=== PATIENT | female | born 1955 | race Caucasian/White ===

== ENCOUNTER → 2020-10-22 13:30 | Outpatient (CLI) | payer OTHER, BC, SELFPAY ==
--- NOTE | ~2020-10-22 | MM_ITS ---
EXAMINATION: MM screening anthony BI w steffany HISTORY: Screening mammogram, family history of breast cancer in her mother. TECHNIQUE: Craniocaudal and mediolateral oblique 3-D tomosynthesis images were obtained and synthetic 2-D images were generated. CAD analysis was submitted and interpreted. COMPARISON: 12/22/2018, 11/04/2016 BREAST PARENCHYMAL COMPOSITION: There are scattered areas of fibroglandular density. FINDINGS: There is no evidence of suspicious mass, calcification, or architectural distortion to sugg est malignancy in either breast. There has been no suspicious interval change. IMPRESSION: 1. No mammographic evidence of malignancy. 2. Recommend routine screening mammography in one year. BI-RADS Category 1: Negative Reviewed, dictated and finalized at location A.
== END ==
PROVIDERS: PCP Internal Medicine; Visit Provider Nurse Practitioner
DX: Z12.31 Encounter for screening mammogram for malignant neoplasm of breast (principal)
CPT/HCPCS: 77063; 77067

== ENCOUNTER → 2021-02-19 10:14 | Outpatient (CLI) | payer BC, SELFPAY ==
--- NOTE | ~2021-02-19 | US_ITS ---
EXAMINATION: US transvaginal DATE: 02/19/2021 10:51 INDICATION: Pelvic and perineal pain Comparison:No prior studies for comparison. TECHNIQUE: Multiple transabdominal and endovaginal sonographic images of the pelvis performed. FINDINGS: The uterus measures 4.9 x 2.6 x 3.7 cm. The endometrial complex measures 4 mm. The ovaries are not visualized, likely atrophic. No adnexal masses or fluid collections. There is no free fluid in the pelvis. There are no abnormal masses seen on either side. IMPRESSION: 1. Unremarkable pelvic ultrasound. Reviewed, dictated and finalized at location A. RITY SUPPORT ANALYST
--- NOTE | ~2021-02-19 | US_ITS ---
US pelvic limited 02/19/2021 10:51 Indication: Pelvic and perineal pain. Disorder of the bladder. Procedure: High-resolution ultrasound of the pelvis using transabdominal technique Comparison: No prior studies for comparison. Findings: Bladder wall is normal. Bladder contains 584 cc prevoid and 70 cc post void. No abnormal pe lvic masses identified. Impression: 1: Small-moderate post void residual measuring 70 cc. Reviewed, dictated and finalized at location A. [employer] Impression: 1: Small-moderate post void residual measuring 70 cc.
== END ==
PROVIDERS: PCP Internal Medicine; Visit Provider Nurse Practitioner Adult Health
DX: R10.2 Pelvic and perineal pain (principal); N32.89 Other specified disorders of bladder
CPT/HCPCS: 76830; 76857

== ENCOUNTER 2022-04-26 15:22 | Outpatient (CLI) | payer OTHER, SELFPAY ==
--- NOTE | ~2022-04-26 | MM_ITS ---
EXAMINATION: MM screening anthony BI w steffany HISTORY: Screening mammogram, family history of breast cancer in her mother. TECHNIQUE: Craniocaudal and mediolateral oblique 3-D tomosynthesis images were obtained and synthetic 2-D images were generated. CAD analysis was submitted and interpreted. COMPARISON: 10/22/2020, 12/22/2018, 11/04/2016 BREAST PARENCHYMAL COMPOSITION: There are scattered areas of fibroglandular density. FINDINGS: No suspicious mass, calcification, or architectural distortion are identified in either rosa ast to suggest malignancy. There has been no suspicious interval change. IMPRESSION: 1. No mammographic evidence of malignancy. 2. Recommend routine screening mammography in one year. BI-RADS Category 1: Negative Reviewed, dictated and finalized at location A. COORDINATOR
== END 2022-04-26 15:23 | disposition home or self-care (01) ==
LOC: ANHIMG 15:26
PROVIDERS: PCP Internal Medicine; Visit Provider Nurse Practitioner
DX: Z12.31 Encounter for screening mammogram for malignant neoplasm of breast (principal)
CPT/HCPCS: 77063; 77067

== ENCOUNTER 2023-03-22 07:39 | Outpatient (CLI) | payer MEDICARE, SELFPAY ==
--- NOTE | ~2023-03-22 | MMUS_ITS ---
EXAMINATION: MM diagnostic anthony LT w steffany, US breast LT complete HISTORY: Left breast pain TECHNIQUE: Additional 3-D tomosynthesis images of the left breast were performed and synthetic 2-D im ages were generated. CAD analysis was submitted and interpreted. High resolution complete left breast ultrasound was performed. COMPARISON: Comparison to multiple prior studies sequentially, with oldest reviewed study dated 08/2015. BREAST PARENCHYMAL COMPOSITION: Breast composed of scattered areas of fibroglandular density FINDINGS: MAMMOGRAPHIC FINDINGS: There are no suspicious masses, calcifications or architectural distortion in the left breast to sugg est malignancy. ULTRASOUND: Complete US of all 4 quadrants of the left breast and retroareolar region was reviewed. Normal hetero geneous echotexture without focal solid or cystic mass. IMPRESSION: 1. No evidence for malignancy in the left breast. 2. Routine yearly screening mammogram and regular clinical breast examination are recommended. BI-RADS Category 1: Negative Reviewed, dictated and finalized at location A. A SERVICES SPECIALIST IMPRESSION: 1. No evidence for malignancy in the left breast. 2. Routine yearly screening mammogram and regular clinical breast examination a re recommended. BI-RADS Category 1: Negative
== END 2023-03-22 07:40 ==
PROVIDERS: PCP Nurse Practitioner; Visit Provider Nurse Practitioner
DX: N64.4 Mastodynia (principal)
CPT/HCPCS: 76641; 77061; 77065; G0279

== ENCOUNTER → 2023-05-09 10:58 | Outpatient (CLI) | payer MEDICARE, SELFPAY ==
--- NOTE | ~2023-05-09 | DEXA_ITS ---
Bone Density Report Name: IMELDA ROBERTS Age: 67 Sex: Female Ethnicity: White Date of : 1955 Indication: osteopenia; postmenopausal Referring Provider: FRANCOISGINNY Study: Bone densitometry was performed. Exam Date: May 09, 2023 Accession number: [id number] Bone Density: Region BMD T-score Z-score Classification AP Spine (L1, L2) 1.136 1.4 3.1 Normal Femoral Neck (Left) 0.660 -1.7 -0.2 Osteopenia Total Hip (Left) 0.810 -1.1 0.2 Osteopenia Femoral Neck (Right) 0.623 -2.0 -0.5 Osteopenia Total Hip (Right) 0.761 -1.5 -0.2 Osteopenia Total Hip Mean 0.786 -1.3 0.0 Osteopenia World Health Organization criteria for BMD impression classify patients as: Normal (T-score at or above -1.0), Osteopenia (T-score between -1.0 and -2.5), or Osteoporosis (T-score at or below -2.5). 10-year Fracture Risk(1): Major Osteoporotic Fracture 11% Hip Fracture 1.8% Reported Risk Factors: [place] (), Neck BMD=0.623, BMI=24.6 (1) FRAX(R) Version 3.08. Fracture probability calculated for an untreated patient. Fracture probability may be lower if the patient has received treatment. Previous Exams: Region Exam Age BMD T-score BMD Change BMD Change Date g/cm2 vs Baseline vs Previous AP Spine(L1, L2) 05/09/2023 67 1.136 1.4 0.032* 0.032* 05/16/2015 59 1.104 1.1 Total Hip(Left) 05/09/2023 67 0.810 -1.1 -0.058* -0.058* 05/16/2015 59 0.868 -0.6 Total Hip(Right) 05/09/2023 67 0.761 -1.5 -0.041* -0.041* 05/16/2015 59 0.802 -1.1 *Denotes significance at 95% confidence level, LSC for AP Spine = 0.022 g/cm2, LSC for Total Hip = 0.027 g/cm2 Clinical Information Provided by Patient: Has used the following medications: Vitamin D, mtv Patient maximum height was 64 Menopause Age: 49 Does not regularly consume dairy products Onset of menses at age 14 Number of children 3 Impression: The patient has low bone mass, based on the Right Femoral Neck T-score. The patient has an estimated ten-year risk of hip fracture of 1.8% and an estimated ten-year risk of major fracture of 11%, based on the WHO FRAX algorithm. The BMD for the Total Hip(Left) decreased, changing by -0.058 since the last DXA exam. The BMD for the Total Hip(Right) decreased, changing by -0.041 since the last DXA exam. Discussion: BONE DENSITY IS LOW AT ONE OR MORE SKELETAL SITES. This patient's lowest T-score is lo
== END ==
PROVIDERS: PCP Internal Medicine; Visit Provider Internal Medicine
DX: Z78.0 Asymptomatic menopausal state (principal); M85.852 Other specified disorders of bone density and structure, left thigh; M85.851 Other specified disorders of bone density and structure, right thigh
CPT/HCPCS: 77080

== ENCOUNTER 2023-06-21 07:13 | Outpatient (CLI) | payer MEDICARE, SELFPAY ==
--- NOTE | ~2023-06-21 | MM_ITS ---
EXAMINATION: MM screening anthony BI w steffany HISTORY: Screening mammogram TECHNIQUE: Craniocaudal and mediolateral oblique 3-D tomosynthesis images were obtained and synthetic 2-D images were generated. CAD analysis was submitted and interpreted. COMPARISON: 03/22/2023 diagnostic left mammogram and complete left breast ultrasound 04/26/2022, 10/22/2020 bilateral screening mammogram examinations BREAST PARENCHYMAL COMPOSITION: There are scattered areas of fibroglandular density. FINDINGS: There is no evidence of suspicious mass, calcification, or architectural distortion to sugg est malignancy in either breast. There has been no suspicious interval change. IMPRESSION: 1. No mammographic evidence of malignancy. 2. Recommend routine screening mammography in one year. BI-RADS Category 1: Negative Reviewed, dictated and finalized at location A.
== END 2023-06-21 07:14 ==
PROVIDERS: PCP Nurse Practitioner; Visit Provider Nurse Practitioner
DX: Z12.31 Encounter for screening mammogram for malignant neoplasm of breast (principal)
CPT/HCPCS: 77063; 77067

== ENCOUNTER 2024-08-08 10:59 | Outpatient (CLI) | payer MEDICARE, SELFPAY ==
--- NOTE | ~2024-08-08 | MM_ITS ---
EXAMINATION: MM screening anthony BI w steffany HISTORY: Screening TECHNIQUE: Craniocaudal and mediolateral oblique 3-D tomosynthesis images were obtained and synthetic 2-D images were generated. CAD analysis was submitted and interpreted. COMPARISON: Comparison to multiple prior studies sequentially, with oldest reviewed study dated 11/04. BREAST PARENCHYMAL COMPOSITION: Not dense: There are scattered areas of fibroglandular density. FINDINGS: There is no evidence of suspicious mass, calcification, or architectural distortion to sugg est malignancy in either breast. There has been no suspicious interval change. IMPRESSION: 1. No mammographic evidence of malignancy. 2. Recommend routine screening mammography in one year. BI-RADS Category 1: Negative Reviewed, dictated and finalized at location A.
== END 2024-08-08 11:00 | disposition home or self-care (01) ==
LOC: MICIMG 11:00
PROVIDERS: PCP Internal Medicine; Visit Provider Nurse Practitioner
DX: Z12.31 Encounter for screening mammogram for malignant neoplasm of breast (principal)
CPT/HCPCS: 77063; 77067

== ENCOUNTER 2024-08-14 09:52 | Outpatient (CLI) | payer MEDICARE, SELFPAY ==
--- NOTE | ~2024-08-14 | US_ITS ---
Pelvic ultrasound. Clinical History: Pelvic pain Technique: Realtime transabdominal and transvaginal scanning of the pelvis was performed. Color flow Doppler and Doppler spectral analysis were performed. Findings: The uterus is anteverted. The endometrial stripe has a thickness of 6 mm. No focal mass is identified. The right ovary is not visualized. No significant right ovarian or adnexal mass is seen. The left ovary measures 1.3 x 1.5 x 1.3 cm. No significant left ovarian or adnexal mass is seen. There is no evidence of free fluid in the cul de sac. Impression: No significant abnormality seen. Right ovary not visualized. Reviewed, dictated and finalized at location . Impression: No significant abnormality seen. Right ovary not visualized.
== END 2024-08-14 09:53 | disposition home or self-care (01) ==
LOC: GOSHIMG 09:53
PROVIDERS: PCP Internal Medicine; Visit Provider Internal Medicine
DX: R10.2 Pelvic and perineal pain (principal)
CPT/HCPCS: 76856

== ENCOUNTER 2025-03-25 05:57 | Day surgery (SDC) | payer MEDICARE, SELFPAY ==
[2025-03-15 10:12] VITALS: BMI 22.3
[2025-03-25 06:10] VITALS: BP 117/69; PULSE 75; RESP 18; TEMP 37.2; O2SAT 100
[2025-03-25] MEDS: LACTATED RINGERS 1,000 ML 150 ML IV CONT (06:25)
--- NOTE | 2025-03-25 07:19 | P.PNAN_ITS ---
Anes - Initial Pre Proc Eval Procedure: Operation Date: 03/25/25 07:30 Proposed Procedures p Screening Colonoscopy - Brice Cornell MD Date/Time: 03/25/25 07:19 Surgeon: Brice Cornell MD Pre Op Diagnosis: Neoplasm Screening Patient Data Age: 69 Gender: F Height: 1.63 m Weight: 58.75 kg Last Vital Signs Temp 99.0 F 03/25/25 06:10 Pulse 75 03/25/25 06:10 Resp 18 03/25/25 06:10 BP 117/69 03/25/25 06:10 Pulse Ox 100 03/25/25 06:10 O2 Del Method Room Air 03/25/25 06:10 Allergies Allergy/AdvReac Type Severity Reaction Status Date / Time ciprofloxacin Allergy Intermediate Dizziness Verified 03/25/25 06:41 erythromycin base Allergy Intermediate Palpitation Verified 03/25/25 06:41 s metronidazole Allergy Intermediate Dizziness Verified 03/25/25 06:41 Penicillins Allergy Intermediate Palpitation Verified 03/25/25 06:41 s Home Medications ?Medication ?Instructions ?Recorded ?Confirmed ?Type Vitamin D3-K2 1 cap PO DAILY 12/06/2403/11 History multivitamin 1 tablet PO DAILY 12/06/24 1 05/26/24 History omega 3 1 cap PO DAILY 12/06/2403/11 History vitamin E 670 mg (1,000 unit) 670 mg PO DAILY 12/06/24 03/25/25 History capsule Patient hx anesthesia problems: none Family hx anesthesia problems: none Results Review: All pre-operative results and documents have been reviewed as part of the pre- operative evaluation. [facility] Past Medical History Medical History (Updated 12/06/24 @ 09:28 by Mickie Acosta DO) Hyperlipidemia Pulmonary nodule Type 2 diabetes mellitus without complications Surgical History Surgical History (Updated 12/06/24 @ 08:49 by Chica Shields CMA) History of lumbar laminectomy Family History Family History (Updated 06/01/16 @ 13:18 by DOCTOR UNKNOWN) Mother Family history of diabetes mellitus in first degree relative Family history of malignant neoplasm of breast in first degree relative Father Family history of lung cancer Family history of primary malignant neoplasm of liver Social History Social History Smoking status: Never smoker Alcohol intake: current Substance use type: does not use Living arrangements: with family Spiritual care concerns: No Anes - Eval Final PreProcedure Day of Procedure 03/25/25 07:19 Heart: regular rate and rhythm Lungs: clear to auscultation Airway: Mallampati scale class 1 Neurological: alert and oriented Last oral intake: >/= 8 hours ASA classification: II Anesthetic plan: proceed Anesthesia type and monitoring: general Results Review: All pre-operative results and documents have been reviewed as part of the pre- operative evaluation. Informed Consent: The patient's anesthetic plan and its attendant risks and benefits were discussed with the patient/family/POA. Questions were solicited and answers provided to the satisfaction of the patient/family/POA.
--- NOTE | 2025-03-25 07:39 | PM.IMHP2 ---
H&P: HPI History of Present Illness Date/Time: 03/25/25 07:39 Chief Complaint: Screening colonoscopy Narrative: This is the patient's 2nd screening colonoscopy. There are no GI symptoms and there is no family history of colorectal cancer. Review of Systems Review of Systems: All systems reviewed & are unremarkable except as noted in HPI and below PMFSH Past Medical History Medical History (Updated 03/25/25 @ 07:40 by Brice Cornell MD) Hyperlipidemia Pulmonary nodule Type 2 diabetes mellitus without complications Surgical History Surgical History (Updated 12/06/24 @ 08:49 by Chica Shields CMA) History of lumbar laminectomy Family History Family History (Updated 06/01/16 @ 13:18 by DOCTOR UNKNOWN) Mother Family history of diabetes mellitus in first degree relative Family history of malignant neoplasm of breast in first degree relative Father Family history of lung cancer Family history of primary malignant neoplasm of liver Social History Social History Smoking status: Never smoker Alcohol intake: current Substance use type: does not use Living arrangements: with family Spiritual care concerns: No Meds Home Medications and Allergies Home Medications ?Medication ?Instructions ?Recorded ?Confirmed ?Type Vitamin D3-K2 1 cap PO DAILY 12/06/24 03/25/25 History multivitamin 1 tablet PO DAILY 12/06/24 03/25/25 History omega 3 1 cap PO DAILY 12/06/24 03/25/25 History vitamin E 670 mg (1,000 unit) 670 mg PO DAILY 12/06/24 03/25/25 History capsule Allergies Allergy/AdvReac Type Severity Reaction Status Date / Time ciprofloxacin Allergy Intermediate Dizziness Verified 03/25/25 06:41 erythromycin base Allergy Intermediate Palpitation Verified 03/25/25 06:41 s metronidazole Allergy Intermediate Dizziness Verified 03/25/25 06:41 Penicillins Allergy Intermediate Palpitation Verified 03/25/25 06:41 s Vital Signs Vital Signs - 24 hr 03/25/25 06:10 Temperature 99.0 F Pulse Rate 75 Respiratory Rate 18 Blood Pressure 117/69 Pulse Oximetry 100 Oxygen Delivery Room Air Exam Const: General: cooperative and healthy appearing Resp: Effort & Inspection: normal respiratory effort and able to speak in complete sentences Auscultation: clear to auscultation bilaterally Cardio: Rate: regular rate Rhythm: regular rhythm GI: Inspection: normal to inspection GI Palp: No No hepatosplenomegaly present Auscultation: normal bowel sounds Rectal Exam: deferred Skin: General skin exam: normal color Psych: Appearance: grossly normal Mental Status: mental status grossly normal Assessment and Plan Assessment and plan (1) Encounter for screening colonoscopy: Code(s): Z12.11 - Encounter for screening for malignant neoplasm of colon Status: Acute Assessment and Plan: The patient is deemed a good candidate for the procedure. Consent signed. Will proceed. had
--- NOTE | 2025-03-25 07:57 | WPDANESEPPF ---
Anes - Initial Pre Proc Eval Procedure: Operation Date: 03/25/25 07:30 Proposed Procedures p Screening Colonoscopy - Brice Cornell MD Date/Time: 03/25/25 07:57 Surgeon: Brice Cornell MD Pre Op Diagnosis: Neoplasm Screening Patient Data Age: 69 Gender: F Height: 1.63 m Weight: 58.75 kg Last Vital Signs Temp 99.0 F 03/25/25 06:10 Pulse 75 03/25/25 06:10 Resp 18 03/25/25 06:10 BP 117/69 03/25/25 06:10 Pulse Ox 100 03/25/25 06:10 O2 Del Method Room Air 03/25/25 06:10 Allergies Allergy/AdvReac Type Severity Reaction Status Date / Time ciprofloxacin Allergy Intermediate Dizziness Verified 03/25/25 06:41 erythromycin base Allergy Intermediate Palpitation Verified 03/25/25 06:41 s metronidazole Allergy Intermediate Dizziness Verified 03/25/25 06:41 Penicillins Allergy Intermediate Palpitation Verified 03/25/25 06:41 s Home Medications ?Medication ?Instructions ?Recorded ?Confirmed ?Type Vitamin D3-K2 1 cap PO DAILY 12/06/24 03/25/25 History multivitamin 1 tablet PO DAILY 12/06/24 03/25/25 History omega 3 1 cap PO DAILY 12/06/24 03/25/25 History vitamin E 670 mg (1,000 unit) 670 mg PO DAILY 12/06/24 03/25/25 History capsule Patient hx anesthesia problems: none Family hx anesthesia problems: none Results Review: All pre-operative results and documents have been reviewed as part of the pre-operative evaluation. [facility] Past Medical History Medical History (Updated 03/25/25 @ 07:40 by Brice Cornell MD) Hyperlipidemia Pulmonary nodule Type 2 diabetes mellitus without complications Surgical History Surgical History (Updated 12/06/24 @ 08:49 by Chica Shields SENIOR COGNOS DEVELOPER) History of lumbar laminectomy Family History Family History (Updated 06/01/16 @ 13:18 by DOCTOR UNKNOWN) Mother Family history of diabetes mellitus in first degree relative Family history of malignant neoplasm of breast in first degree relative Father Family history of lung cancer Family history of primary malignant neoplasm of liver Social History Social History Smoking status: Never smoker Alcohol intake: current Substance use type: does not use Living arrangements: with family Spiritual care concerns: No Anes - Eval Final PreProcedure Day of Procedure 03/25/25 07:57 Heart: regular rate and rhythm Lungs: clear to auscultation Airway: Mallampati scale class II Neurological: alert and oriented Last oral intake: >/= 8 hours ASA classification: II Anesthetic plan: proceed Anesthesia type and monitoring: general Results Review: All pre-operative results and documents have been reviewed as part of the pre-operative evaluation. Informed Consent: The patient's anesthetic plan and its attendant risks and benefits were discussed with the patient/family/POA. Questions were solicited and answers provided to the satisfaction of the patient/family/POA.
--- NOTE | 2025-03-25 07:58 | WPDANESPN ---
Anes - Prog Note Post-Op Date/Time: 03/25/25 07:58 Vital Signs: Last Vital Signs Temp 99.0 F 03/25/25 06:10 Pulse 75 03/25/25 06:10 Resp 18 03/25/25 06:10 BP 117/69 03/25/25 06:10 Pulse Ox 100 03/25/25 06:10 O2 Del Method Room Air 03/25/25 06:10 Pain Score (VAS): no I/O: Intake & Output 03/24/25 03/24/25 03/25/25 15:59 23:59 07:59 Intake Total 400 Balance 400 Patient Feedback: Patient satisfied with anesthetic care.
[2025-03-25 08:00] VITALS: BP 101/57; PULSE 66; RESP 14; O2SAT 100
[2025-03-25 08:10] VITALS: BP 110/66; PULSE 65; RESP 16; O2SAT 100
[2025-03-25 08:20] VITALS: BP 117/72; PULSE 59; RESP 18; O2SAT 100
== END 2025-03-25 08:30 | disposition home or self-care (01) ==
PROVIDERS: PCP Internal Medicine; Visit Provider Internal Medicine Gastroenterology
PROC: 0DJD8ZZ Inspection of Lower Intestinal Tract, Via Natural or Artificial Opening Endoscopic (ICD-10-PCS; CPT 45378; principal; 2025-03-25 07:30)
DX: Z12.11 Encounter for screening for malignant neoplasm of colon (principal)
CPT/HCPCS: G0121